=== PATIENT | female | born 1975 | race Hispanic/Latino ===

== ENCOUNTER 2016-07-08 11:29 | Emergency (ER) | payer OTHER ==
[~2016-07-08] VITALS: Ht 154.9 cm; Wt 59.0 kg
[2016-07-08 11:34] VITALS: BP 137/94
--- NOTE | 2016-07-08 12:36 | ED GENERAL ADULT ---
History of Present Illness General Chief Complaint: General Adult Stated Complaint: MENTAL HEALTH, MED REFILL Source: patient Exam Limitations: no limitations Vital Signs & Intake/Output Vital Signs & Intake/Output Vital Signs Date Time Temp Pulse Resp B/P Pulse O2 O2 Flow FiO2 Ox Delivery Rate 07/08 1203 99 Room Air 07/08 1134 97.1 114 20 137/94 100 Room Air ED Intake and Output 07/09 0000 07/08 1200 Intake Total Output Total Balance Patient 130 lb Weight Allergies Coded Allergies: No Known Allergies (07/08/16) Triage Note: PT STATES SHE NEEDS MEDICATION REFILL. COMES IN WITH GROCERY BAG FULL OF MEDICINE Triage Nurses Notes Reviewed? yes : No Patient currently breastfeeds: No HPI: Patient presents for medication refill secondary to multiple medical problems including prior abdominal surgeries, psychiatric disease and migraines. 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 she has no primary care doctor currently and has run out of some of her medications (oxycodone and clonazapam). in addition she is coming down with migraines. she has been trying to extend her current medications as long as possible. she has a hx of severe gi issues requiring pain medications. she states that motrin prescription is not helping. she states she cannot begin to descibe the level of her pain. she is becoming frustrated because "no one is helping her with her medications". Past History Travel History Traveled to [place] past 21 day No Medical History Any Pertinent Medical History? see below for history Neurological: migraine Cardiovascular: hypertension Gastrointestinal: GI ISSUES with chronic pain Psychiatric: anxiety, depression, PTSD PANIC DISORDER Surgical History Surgical History: abd surgeries Psychosocial History What is your primary language Divehi Tobacco Use: Current Daily Use Daily Tobacco Use Amount/Type: => 5 Cigarettes daily ETOH Use: occasional use Illicit Drug Use: denies illicit drug use Family History Hx Contributory? No Review of Systems Review of Systems Constitutional: Reports: no symptoms. EENTM: Reports: no symptoms. Respiratory: Reports: no symptoms. Cardiovascular: Reports: no symptoms. GI: Reports: abdominal pain. Genitourinary: Reports: no symptoms. Musculoskeletal: Reports: no symptoms. Skin: Reports: no symptoms. Neurological/Psychological: Reports: headache. Hematologic/Endocrine: Reports: no symptoms. Immunologic/Allergic: Reports: no symptoms. All Other Systems: Reviewed and Negative Physical Exam Physical Exam General Appearance: see below Comments: gen: wn, wd, no acute resp distress head: nc/at eyes: normal inspection ears: normal inspection nose: normal inspection throat/mouth: moist mucosa neck: supple, from, no goiter lungs: resp unlabored abd: non distended back: normal range of motion ext: normal range of motion, no cyanosis, clubbing or edema skin: warm and dry circulatory: normal color neuro: cn 2-12 grossly intact, speech clear, nl gait psych: calm but prone to angry outburts, cooperative, no apparent delusion, hallucinations or pressured speech Core Measures ACS in differential dx? No CVA/TIA Diagnosis: No Severe Sepsis Present: No Septic Shock Present: No Progress Differential Diagnoses I considered the following diagnoses in my evaluation of the patient: acute on chronic pain, withdrawal Plan of Care: follow up with primary care doctor for consistent and monitored medication use. Initial ED EKG: none Comments: 07/08/2016 1:00:54 PM I have had a discussion with the patient's CHILD DAY CARE TEACHER at the [facility] clinic. She was treated for hemorrhoids with Proctofoam and according to the CHILD DAY CARE TEACHER, the patient seemed satisfied. She was supposed to have a GI specialist appointment tomorrow according to her CHILD DAY CARE TEACHER. The patient now states that there are problems with her insurance and she may not be able to follow-up. In addition she doesn't have the co-pay to be able to go. I pointed out to her that she has had 3 different pharmacies on the [place] prescribing website and that I'm concerned that she is now in a different emergency department and has received prescriptions from 3 different pharmacies, including narcotics from the ED at . I pointed out to her that did receive a narcotic prescription from that ED, so why hadnt she returned there, she states she did, but was given "fing" motrin. she was incredulous that she was given motrin for her severe pain. I have expressed to the patient that I understand her frustration but there are too many issues with her history and her prescriptions. I do not feel comfortable prescribing these medications for her. She cannot even tell me for how long she will be in [place]. Again I just didnt feel comfortable prescribing her these medications under the circumstances. however, i did attempt to provide pt an avenue for mechanical manufacturing technician care , but pt apparently did not care for this. she left the ED, refusing d/c instructions. Departure Departure Disposition: LEFT AGAINST MEDICAL ADVICE Condition: Stable Clinical Impression Primary Impression: Anxiety Secondary Impressions: Chronic abdominal pain Referrals: PATIENT HAS NO PRIMARY CARE DR (PCP/Family) Additional Instructions: Patient left after refusing discharge instructions. Departure Forms: Customer Survey General Discharge Information Critical Care Note Critical Care Note Critical Care Time: non-applicable
== END 2016-07-08 13:06 | disposition left against medical advice (07) ==
LOC: ERH 11:29
DX: F41.9 Anxiety disorder, unspecified (principal); R10.9 Unspecified abdominal pain
CPT/HCPCS: 99281